=== PATIENT | female | born 1955 | race Caucasian/White ===

== ENCOUNTER → 2024-02-12 09:44 | Outpatient (REF) | payer MEDICARE, SELFPAY | LOC: HWRAD 09:44 | PROVIDERS: ATTENDING PHYSICIAN Obstetrics & Gynecology Gynecology; FAMILY PHYSICIAN Physician Assistant Medical | DX: M85.89 Other specified disorders of bone density and structure, multiple sites (principal); Z12.31 Encounter for screening mammogram for malignant neoplasm of breast | CPT/HCPCS: 77063; 77067; 77080 ==

== ENCOUNTER → 2024-02-14 12:54 | Outpatient (REF) | payer MEDICARE, SELFPAY | LOC: MRI 3T 12:54 | PROVIDERS: ATTENDING PHYSICIAN Internal Medicine; FAMILY PHYSICIAN Physician Assistant Medical | DX: C69.31 Malignant neoplasm of right choroid (principal) | CPT/HCPCS: 74183; A9581 ==

== ENCOUNTER → 2024-08-14 10:57 | Outpatient (REF) | payer MEDICARE, SELFPAY | LOC: HWRAD 10:57 | PROVIDERS: ATTENDING PHYSICIAN Nurse Practitioner Family; FAMILY PHYSICIAN Physician Assistant Medical | DX: C69.31 Malignant neoplasm of right choroid (principal) | CPT/HCPCS: 71046 ==

== ENCOUNTER → 2024-08-18 12:12 | Outpatient (REF) | payer MEDICARE, SELFPAY | LOC: MRI 3T 12:12 | PROVIDERS: ATTENDING PHYSICIAN Nurse Practitioner Family; FAMILY PHYSICIAN Physician Assistant Medical | DX: C69.31 Malignant neoplasm of right choroid (principal) | CPT/HCPCS: 74183; A9581 ==

== ENCOUNTER 2024-11-20 06:15 | Day surgery (SDC) | payer MEDICARE, SELFPAY | END 2024-11-20 10:10 | disposition home or self-care (01) | LOC: GI 06:15 | PROVIDERS: ATTENDING PHYSICIAN Specialist | DX: Z12.11 Encounter for screening for malignant neoplasm of colon (principal); R19.7 Diarrhea, unspecified; Q43.8 Other specified congenital malformations of intestine; Z80.0 Family history of malignant neoplasm of digestive organs | CPT/HCPCS: 45380; 88305 ==

== ENCOUNTER → 2025-02-16 12:03 | Outpatient (REF) | payer MEDICARE, SELFPAY | LOC: MRI 12:03 | PROVIDERS: ATTENDING PHYSICIAN Nurse Practitioner Family; FAMILY PHYSICIAN Physician Assistant Medical | DX: C69.31 Malignant neoplasm of right choroid (principal) | CPT/HCPCS: 74183; A9581 ==

== ENCOUNTER → 2025-09-05 12:50 | Outpatient (REF) | payer MEDICARE, SELFPAY | LOC: MRI 3T 12:50 | PROVIDERS: ATTENDING PHYSICIAN Nurse Practitioner Family; FAMILY PHYSICIAN Physician Assistant Medical | DX: C69.31 Malignant neoplasm of right choroid (principal) | CPT/HCPCS: 74183; A9581 ==

== ENCOUNTER → 2025-09-07 15:23 | Outpatient (REF) | payer MEDICARE, SELFPAY | LOC: REG 15:23 | PROVIDERS: ATTENDING PHYSICIAN Physician Assistant Medical; OTHER PHYSICIAN Nurse Practitioner Family | DX: M25.50 Pain in unspecified joint (principal); M25.561 Pain in right knee; M25.562 Pain in left knee; C69.31 Malignant neoplasm of right choroid | CPT/HCPCS: 71046; 73564 ==